=== PATIENT | female | born 1995 | race Hispanic/Latino ===

== ENCOUNTER → 2023-07-20 11:43 | Outpatient (REF) | payer OTHER, SELFPAY ==
[2023-07-20 13:31] LABS: ALT (SGPT) 66 U/L (0-35); AST (SGOT) 129 U/L (14-36); Albumin 4.4 g/dl (3.5-5.0); Alkaline Phosphatase 182 U/L (38-126); Blood Urea Nitrogen 11 mg/dl (7-17); Carbon Dioxide 27 mmol/L (22-30); Chloride 102 mmol/L (98-107); GGTP 126 U/L (12-43); Glucose 103 mg/dl (70-99); Potassium 4.3 mmol/L (3.5-5.1); Sodium 135 mmol/L (135-145); Total Bilirubin 0.5 mg/dl (0.2-1.3); Total Protein 7.9 g/dl (6.3-8.2); eGFR > 60.00
[2023-07-20 13:43] LABS: Free T3 3.78 pg/ml (2.77-5.27); Free T4 1.23 ng/dl (0.78-2.19); Vitamin D, 25-OH*** 40.9 ng/mL (30-80)
[2023-07-20 13:56] LABS: TSH 0.53 uIU/ml (0.47-4.68)
[2023-07-20 14:17] LABS: Glycohemoglobin (HgbA1c) 6.3 % (4.0-5.6)
== END ==
LOC: REG 11:43
PROVIDERS: ATTENDING PHYSICIAN Nurse Practitioner Adult Health
DX: K76.0 Fatty (change of) liver, not elsewhere classified (principal); E05.00 Thyrotoxicosis with diffuse goiter without thyrotoxic crisis or storm
CPT/HCPCS: 36415; 80053; 82306; 82977; 83036; 84439; 84443; 84481

== ENCOUNTER → 2023-10-20 09:03 | Outpatient (REF) | payer OTHER, SELFPAY ==
[2023-10-20 11:58] LABS: Glycohemoglobin (HgbA1c) 6.2 % (4.0-5.6)
[2023-10-20 12:53] LABS: ALT (SGPT) 30 U/L (0-35); AST (SGOT) 54 U/L (14-36); Albumin 4.5 g/dl (3.5-5.0); Alkaline Phosphatase 163 U/L (38-126); Blood Urea Nitrogen 14 mg/dl (7-17); Calcium 9.5 mg/dl (8.4-10.2); Carbon Dioxide 23 mmol/L (22-30); Chloride 101 mmol/L (98-107); Glucose 105 mg/dl (70-99); Potassium 4.7 mmol/L (3.5-5.1); Sodium 138 mmol/L (135-145); Total Bilirubin 0.3 mg/dl (0.2-1.3); Total Protein 7.6 g/dl (6.3-8.2); eGFR > 60.00
[2023-10-20 12:54] LABS: Free T3 4.32 pg/ml (2.77-5.27); Free T4 1.08 ng/dl (0.78-2.19)
[2023-10-20 13:23] LABS: TSH 0.82 uIU/ml (0.47-4.68)
== END ==
LOC: CLINIC 09:03
PROVIDERS: ATTENDING PHYSICIAN Nurse Practitioner Adult Health
DX: K76.0 Fatty (change of) liver, not elsewhere classified (principal); E05.00 Thyrotoxicosis with diffuse goiter without thyrotoxic crisis or storm; R73.03 Prediabetes
CPT/HCPCS: 36415; 80053; 83036; 84439; 84443; 84481

== ENCOUNTER → 2023-10-26 10:34 | Outpatient (REF) | payer OTHER, SELFPAY ==
[2023-10-26 12:07] LABS: Beta HCG Quantitative < 2.39 mIU/ml
== END ==
LOC: REG 10:34
PROVIDERS: ATTENDING PHYSICIAN Nurse Practitioner Adult Health
DX: N91.2 Amenorrhea, unspecified (principal)
CPT/HCPCS: 36415; 84702

== ENCOUNTER → 2024-01-26 09:01 | Outpatient (REF) | payer OTHER, SELFPAY ==
[2024-01-26 10:37] LABS: Hematocrit 36.5 % (37.0-47.0); Mean Corp Hgb Conc. 32.9 g/dL (33.0-37.0); Mean Corpuscular Hgb 26.6 pg (27.0-31.0); Mean Corpuscular Volume 80.9 fL (81.0-99.0); Mean Platelet Volume 9.2 fL (7.4-10.4); Platelet Count 442 10^3/uL (130-400); Red Blood Cell Count 4.51 10^6/uL (4.20-5.40); Red Cell Dist. Width 14.6 % (11.5-14.5); White Blood Cell Count 10.2 10^3/uL (4.8-10.8)
[2024-01-26 10:58] LABS: ALT (SGPT) 39 U/L (0-35); AST (SGOT) 68 U/L (14-36); Albumin 4.6 g/dl (3.5-5.0); Alkaline Phosphatase 176 U/L (38-126); Blood Urea Nitrogen 15 mg/dl (7-17); Calcium 9.3 mg/dl (8.4-10.2); Carbon Dioxide 23 mmol/L (22-30); Chloride 103 mmol/L (98-107); Glucose 113 mg/dl (70-99); Potassium 4.9 mmol/L (3.5-5.1); Sodium 139 mmol/L (135-145); Total Bilirubin 0.3 mg/dl (0.2-1.3); Total Protein 7.6 g/dl (6.3-8.2); eGFR > 60.00
[2024-01-26 11:29] LABS: Free T3 3.58 pg/ml (2.77-5.27); Free T4 1.08 ng/dl (0.78-2.19); Vitamin D, 25-OH*** 33.6 ng/mL (30-80)
[2024-01-26 11:42] LABS: TSH 1.19 uIU/ml (0.47-4.68)
== END ==
LOC: REG 09:01
PROVIDERS: ATTENDING PHYSICIAN Nurse Practitioner Adult Health
DX: K76.0 Fatty (change of) liver, not elsewhere classified (principal); E05.00 Thyrotoxicosis with diffuse goiter without thyrotoxic crisis or storm; E55.9 Vitamin D deficiency, unspecified
CPT/HCPCS: 36415; 80053; 82306; 84439; 84443; 84481; 85027

== ENCOUNTER → 2024-04-26 11:55 | Outpatient (REF) | payer OTHER, SELFPAY ==
[2024-04-26 12:45] LABS: Hematocrit 41.3 % (37.0-47.0); Hemoglobin 12.8 g/dL (12.0-16.0); Mean Corpuscular Hgb 26.7 pg (27.0-31.0); Mean Platelet Volume 8.9 fL (7.4-10.4); Platelet Count 411 10^3/uL (130-400); Red Cell Dist. Width 14.6 % (11.5-14.5); White Blood Cell Count 9.6 10^3/uL (4.8-10.8)
[2024-04-26 13:16] LABS: ALT (SGPT) 38 U/L (0-35); AST (SGOT) 63 U/L (14-36); Albumin 4.6 g/dl (3.5-5.0); Alkaline Phosphatase 149 U/L (38-126); Blood Urea Nitrogen 7 mg/dl (7-17); Calcium 9.2 mg/dl (8.4-10.2); Carbon Dioxide 29 mmol/L (22-30); Chloride 101 mmol/L (98-107); Glucose 98 mg/dl (70-99); Potassium 4.7 mmol/L (3.5-5.1); Sodium 139 mmol/L (135-145); Total Bilirubin 0.3 mg/dl (0.2-1.3); Total Protein 7.9 g/dl (6.3-8.2); eGFR > 60.00
[2024-04-26 13:35] LABS: Erythrocyte Sed Rate 25 mm/hour (0-20)
[2024-04-26 13:39] LABS: Free T3 4.25 pg/ml (2.77-5.27); Free T4 1.11 ng/dl (0.78-2.19)
[2024-04-26 13:53] LABS: TSH 1.53 uIU/ml (0.47-4.68)
[2024-04-27 09:04] LABS: Glycohemoglobin (HgbA1c) 6.3 % (4.0-5.6)
== END ==
LOC: CLINIC 11:55
PROVIDERS: ATTENDING PHYSICIAN Nurse Practitioner Adult Health
DX: K76.0 Fatty (change of) liver, not elsewhere classified (principal); E05.00 Thyrotoxicosis with diffuse goiter without thyrotoxic crisis or storm
CPT/HCPCS: 36415; 80053; 83036; 84439; 84443; 84481; 85027; 85652; 86140

== ENCOUNTER → 2024-07-25 10:41 | Outpatient (REF) | payer OTHER, SELFPAY ==
[2024-07-25 12:08] LABS: ALT (SGPT) 32 U/L (0-35); AST (SGOT) 51 U/L (14-36); Albumin 4.5 g/dl (3.5-5.0); Alkaline Phosphatase 173 U/L (38-126); Blood Urea Nitrogen 13 mg/dl (7-17); Calcium 9.3 mg/dl (8.4-10.2); Carbon Dioxide 28 mmol/L (22-30); Chloride 101 mmol/L (98-107); Glucose 117 mg/dl (70-99); Potassium 4.7 mmol/L (3.5-5.1); Sodium 138 mmol/L (135-145); Total Bilirubin 0.4 mg/dl (0.2-1.3); Total Protein 7.9 g/dl (6.3-8.2); eGFR > 60.00
[2024-07-25 12:22] LABS: Free T3 3.79 pg/ml (2.77-5.27); Free T4 1.24 ng/dl (0.78-2.19)
[2024-07-25 12:36] LABS: TSH 1.49 uIU/ml (0.47-4.68)
== END ==
LOC: CLINIC 10:41
PROVIDERS: ATTENDING PHYSICIAN Nurse Practitioner Adult Health
DX: K76.0 Fatty (change of) liver, not elsewhere classified (principal); R73.03 Prediabetes; E05.00 Thyrotoxicosis with diffuse goiter without thyrotoxic crisis or storm
CPT/HCPCS: 36415; 80053; 84439; 84443; 84481

== ENCOUNTER → 2024-10-29 07:47 | Outpatient (REF) | payer OTHER, SELFPAY ==
[2024-10-29 08:36] LABS: Hematocrit 36.5 % (37.0-47.0); Mean Corp Hgb Conc. 32.9 g/dL (33.0-37.0); Mean Corpuscular Hgb 26.7 pg (27.0-31.0); Mean Corpuscular Volume 81.3 fL (81.0-99.0); Mean Platelet Volume 9.2 fL (7.4-10.4); Platelet Count 419 10^3/uL (130-400); Red Blood Cell Count 4.49 10^6/uL (4.20-5.40); White Blood Cell Count 10.4 10^3/uL (4.8-10.8)
[2024-10-29 09:02] LABS: ALT (SGPT) 30 U/L (0-35); AST (SGOT) 51 U/L (14-36); Albumin 4.5 g/dl (3.5-5.0); Alkaline Phosphatase 145 U/L (38-126); Blood Urea Nitrogen 9 mg/dl (7-17); Calcium 9.4 mg/dl (8.4-10.2); Carbon Dioxide 24 mmol/L (22-30); Chloride 108 mmol/L (98-107); Glucose 113 mg/dl (70-99); Potassium 4.5 mmol/L (3.5-5.1); Sodium 139 mmol/L (135-145); Total Bilirubin 0.4 mg/dl (0.2-1.3); Total Protein 7.9 g/dl (6.3-8.2); eGFR > 60.00
[2024-10-29 09:19] LABS: Free T3 4.14 pg/ml (2.77-5.27); Free T4 1.19 ng/dl (0.78-2.19); Vitamin D, 25-OH*** 22.4 ng/mL (30-80)
[2024-10-29 09:32] LABS: TSH 1.72 uIU/ml (0.47-4.68)
[2024-10-29 10:53] LABS: Glycohemoglobin (HgbA1c) 6.4 % (4.0-5.6)
== END ==
LOC: CLINIC 07:47
PROVIDERS: ATTENDING PHYSICIAN Nurse Practitioner Adult Health
DX: K76.0 Fatty (change of) liver, not elsewhere classified (principal); R73.03 Prediabetes; E05.00 Thyrotoxicosis with diffuse goiter without thyrotoxic crisis or storm; E55.9 Vitamin D deficiency, unspecified
CPT/HCPCS: 80053; 82306; 83036; 84439; 84443; 84481; 85027

== ENCOUNTER → 2025-01-28 08:06 | Outpatient (REF) | payer OTHER, SELFPAY ==
[2025-01-28 09:43] LABS: ALT (SGPT) 66 U/L (0-35); AST (SGOT) 109 U/L (14-36); Albumin 4.5 g/dl (3.5-5.0); Alkaline Phosphatase 162 U/L (38-126); Blood Urea Nitrogen 11 mg/dl (7-17); Calcium 9.3 mg/dl (8.4-10.2); Carbon Dioxide 24 mmol/L (22-30); Chloride 105 mmol/L (98-107); Glucose 111 mg/dl (70-99); Sodium 136 mmol/L (135-145); Total Protein 7.7 g/dl (6.3-8.2); eGFR > 60.00
[2025-01-28 09:50] LABS: Potassium 4.4 mmol/L (3.5-5.1)
[2025-01-28 09:59] LABS: Free T3 3.96 pg/ml (2.77-5.27); Vitamin D, 25-OH*** 52.4 ng/mL (30-80)
[2025-01-28 10:12] LABS: TSH 1.78 uIU/ml (0.47-4.68)
[2025-01-28 12:12] LABS: Glycohemoglobin (HgbA1c) 6.4 % (4.0-5.6)
[2025-01-30 04:37] LABS: Thyroid Stim. Immunoglobulin 0.41 IU/L (<=0.54)
== END ==
LOC: CLINIC 08:06
PROVIDERS: ATTENDING PHYSICIAN Nurse Practitioner Adult Health
DX: K76.0 Fatty (change of) liver, not elsewhere classified (principal); E05.00 Thyrotoxicosis with diffuse goiter without thyrotoxic crisis or storm; R73.03 Prediabetes; E55.9 Vitamin D deficiency, unspecified
CPT/HCPCS: 36415; 80053; 82306; 83036; 84439; 84443; 84445; 84481